=== PATIENT | female | born 1990 | race Caucasian/White ===

== ENCOUNTER 2016-08-12 12:27 | Emergency (ER) | payer OTHER ==
[2016-08-12] MEDS ORDERED: 0.9 % SODIUM CHLORIDE 1,000 ML IV ONE (12:34)
[2016-08-12] MEDS ORDERED: LORazepam 2 MG/ML VIAL IVP ONE (12:35)
[2016-08-12 12:55] LABS: BASOPHILS % 0.3 (0.0-1.5); EOSINOPHILS % 2.8 % (0.0-6.8); LYMPHOCYTES # 1.3 # k/uL (0.6-4.0); MONOCYTES # 0.3 # k/uL (0.0-0.9); MONOCYTES % 5.3 % (0.0-11.0); NEUTROPHILS # 3.9 # k/uL (1.4-7.7)
[2016-08-12 13:09] LABS: eGFR (African) > 60; eGFR (Non-African) > 60
--- NOTE | 2016-08-12 13:22 | ED Physician Documentation ---
General Adult - HISTORIAN Historian: patient - HPI Stated Complaint: witnessed seizure Chief Complaint: General Adult Onset: minutes Timing: better Severity: moderate Further Comments: yes (Pt is a 25 yo female who was observed to have a seizure shortly [employer]. Seizure lasted about 1 minute. No loss of bowel or bladder. Pt had 2 seizures a few years ago and had been on xanax, but d/c'd this during . Pt gave about 9 months ago. Pt was alert and oriented on arrival in ER, though appeared tired and c/o headache.) - ROS CONST: other (malaise) EYES/ENT: none CVS/RESP: none GI/: none MS/SKIN/LYMPH: none NEURO/PSYCH: headache, other (post-ictal) - PAST HX Past History: other (seizure) Allergies/Adverse Reactions: Allergies Allergy/AdvReac Type Severity Reaction Status Date / Time No Known Allergies Allergy Verified 08/12/16 12:47 - SOCIAL HX Smoking History: cigarettes - FAMILY HX Family History: No - VITAL SIGNS Vital Signs: Vital Signs Temp Pulse Resp BP Pulse Ox 98.4 F 114 H 18 132/75 95 08/12/16 12:33 08/12/16 12:33 08/12/16 12:33 08/12/16 12:33 08/12/16 12:33 - REVIEWED ASSESSMENTS Nursing Assessment Reviewed: Yes Vitals Reviewed: Yes Progress - Progress Progress: 1 L IVF NS Ativan 1 mg IV UDS non-neg for methamphetamines, methadone, and benzodizepine (pt was given benzo here) Discussed with pt. Pt to f/u with pcp. ED Results Lab/Radiology - Lab Results Lab Results: Lab Results 08/12/16 08/12/16 12:45 12:45 WBC 5.70 K/ul K/ul (4.00-12.00) RBC 4.23 M/ul M/ul (3.90-5.20) Hgb 13.5 g/dL g/dL (12.0-16.0) Hct 40.6 % % (34.5-46.5) MCV 95.9 fl fl (80.0-100.0) MCH 32.0 pg pg (28.0-34.0) MCHC 33.4 g/dL g/dL (30.0-36.0) RDW 13.1 % % (11.3-14.3) Plt Count 270 K/mm3 K/mm3 (130-400) Neut % (Auto) 67.4 % % (39.0-79.0) Lymph % (Auto) 22.1 % % (16.0-50.0) [place] % (Auto) 5.3 % % (0.0-11.0) Eos % (Auto) 2.8 % % (0.0-6.8) Baso % (Auto) 0.3 (0.0-1.5) Neut # 3.9 # k/uL # k/uL (1.4-7.7) Lymph # 1.3 # k/uL # k/uL (0.6-4.0) [place] # 0.3 # k/uL # k/uL (0.0-0.9) Eos # 0.2 # k/uL # k/uL (0.0-0.6) Baso # 0.0 # k/uL # k/uL (0.0-0.5) Reactive Lymphs % 2.1 % % (0.0-5.0) Reactive Lymphs # 0.1 # k/uL # k/uL (0.0-0.8) Sodium 133 mmol/L L mmol/L (136-145) Potassium 4.8 mmol/L mmol/L (3.5-5.0) Chloride 110 mmol/L mmol/L (98-110) Carbon Dioxide 28 mmol/L mmol/L (20-32) BUN 13 mg/dL mg/dL (10-26) Creatinine 0.7 mg/dL mg/dL (0.4-1.5) Estimated Creat Clear 122 Est GFR ( Amer) > 60 (60 - ) Est GFR (Non-Af Amer) > 60 (60 - ) Glucose 105 mg/dL H mg/dL (70-99) Calcium 9.4 mg/dL mg/dL (8.5-10.5) Total Bilirubin 0.6 mg/dL mg/dL (0.2-1.2) AST 20 U/L U/L (0-41) ALT 26 U/L U/L (0-45) Alkaline Phosphatase 51 U/L U/L (46-116) Total Protein 7.7 g/dL g/dL (6.0-8.5) Albumin 4.8 g/dL g/dL (3.0-5.5) - Orders Orders: ED Orders Category Date Time Status CBC/PLATELET/DIFF Routine Lab 08/12/16 12:45 Completed CMP Routine Lab 08/12/16 12:45 Completed UDS [DRUG SCREEN URINE MEDICAL ONLY] Routine Lab 08/12/16 Ordered URINALYSIS Routine Lab 08/12/16 Ordered 0.9 % Sodium Chloride [Normal Saline] 1,000 ml Med 08/12/16 12:34 Active IV Q1H LORazepam [Ativan] Med 08/12/16 12:35 Discontinued 1 mg IVP NOW ONE General Adult Physical Exam - PHYSICAL EXAM GENERAL APPEARANCE: mild distress EENT: eye inspection normal, ENT inspection normal, pharynx normal, other ( tongue abrasion) NECK: normal inspection, supple RESPIRATORY: no resp distress, chest non-tender, breath sounds normal CVS: heart sounds normal, tachycardia ABDOMEN: soft, no organomegaly, normal bowel sounds BACK: normal inspection, no CVA tenderness SKIN: warm/dry, normal color EXTREMITIES: non-tender, normal range of motion, no evidence of injury NEURO: oriented X3, motor nml, sensation nml Discharge Clincal Impression: Seizure Referrals: Charles Watson MD [STAFF PHYSICIAN] - 2 Days Condition: Good Disposition: 01 HOME, SELF-CARE Decision to Admit: NO Decision Time: 14:01
[2016-08-12 13:45] LABS: APPEARANCE,URINE Clear (CLEAR); COLOR,URINE Yellow (YELLOW); OCCULT BLOOD,URINE 3+ (NEGATIVE); UROBILINOGEN URINE 0.2 Eu (0.2-1.0)
[2016-08-12 13:49] LABS: AMPHETAMINE NEGATIVE ng/mL (<1000); BARBITURATES NEGATIVE ng/mL (<300); CANNABINOIDS NEGATIVE ng/mL (<50); COCAINE NEGATIVE ng/mL (<150); METHAMPHETAMINE NON NEGATIVE ng/mL (<1000); METHYLENEDIOXYMETHAMPHETAMINE NEGATIVE ng/mL (<500)
[2016-08-12 14:21] VITALS: BP 115/72
== END 2016-08-12 14:06 | disposition home or self-care (01) ==
LOC: ED 12:27
DX: R56.9 Unspecified convulsions (principal)
CPT/HCPCS: 80053; 80324; 80346; 80358; 80377; 81002; 85025; J2060; J7030; 80325; 80359; 80360; 96361; 96374; 99282; 99283; G0477; G0480; G0482; S1016

== ENCOUNTER 2017-04-19 15:21 | Outpatient (CLI) | payer OTHER | END 2017-04-19 15:22 | LOC: LAB 15:21 | PROVIDERS: ATTEND Family Medicine | DX: R94.6 Abnormal results of thyroid function studies (principal) | CPT/HCPCS: 36415; 84439; 84443; 84481 ==